=== PATIENT | male | born 2000 | race Caucasian/White ===

== ENCOUNTER 2024-02-11 13:13 | Emergency (ER) | payer OTHER, SELFPAY ==
--- NOTE | ~2024-02-11 | XR_ITS ---
EXAMINATION: XR chest 2V DATE: 02/11/2024 13:56 INDICATION: Chest pain. TECHNIQUE: Frontal and lateral views of the chest were obtained. COMPARISON: None. FINDINGS: There is no pneumonia, pleural effusion, or pneumothorax. The heart size is normal. IMPRESSION: 1. No acute cardiopulmonary disease. Reviewed, dictated and finalized at location A.
--- NOTE | 2024-02-11 13:14 | ECG_ITS ---
Test Date: 2024-02-11 13:18:48 Measurements Intervals [place] Rate: 71 P: 74 PA: 160 QRS: 61 QRSD: 102 T: 32 QT: 405 QTc: 442 Interpretive Statements SINUS RHYTHM WITH SINUS ARRHYTHMIA No previous ECG available for comparison Electronically Signed On 02-11-2024 14:51:58 CDT by Chastity Baugh M.D.
[2024-02-11 13:16] VITALS: BP 147/86; PULSE 68; RESP 18; TEMP 36.7; O2SAT 99
[2024-02-11 13:36] LABS: Basophils Percent Auto 0.3 % (0.2-1.2); Eosinophils Absolute Auto 0.1 K/mm3 (0-0.3); Eosinophils Percent Auto 1.5 % (0-4.4); Hematocrit 48.8 % (42.0-52.0); Hemoglobin 17.1 g/dL (14.0-18.0); Immature Granulocyte Absolute 0.01 K/mm3 (0.00-0.031); Immature Granulocyte Percent A 0.2 % (0-0.5); Lymphocytes Absolute Auto 2.09 K/mm3 (0.9-3.2); Lymphocytes Percent Auto 35.9 % (18.3-44.2); Mean Corpuscular Hemoglobin 31.5 pg (26-34); Mean Corpuscular Volume 89.9 fl (80-100); Mean Platelet Volume 10.5 fl (7.4-10.4); Monocytes Absolute Auto 0.5 K/mm3 (0.1-0.6); Monocytes Percent Auto 8.1 % (2.6-8.5); Neutrophils Absolute Auto 3.1 K/mm3 (1.3-6.7); Platelet Count Result 211 k/mm3 (150-375); Red Blood Count 5.43 M/mm3 (4.6-6.20); Red Cell Distribution Width 12.4 % (11.5-14.5); White Blood Count 5.8 K/mm3 (4.5-10.0)
[2024-02-11 13:45] LABS: Alanine Aminotransferase 17 U/L (6-50); Albumin Level 5.2 g/dL (3.5-5.1); Alkaline Phosphatase 69 U/L (38-126); Anion Gap 13 mmol/L (4-12); Aspartate Amino Transferase 27 U/L (17-59); Blood Urea Nitrogen 16 mg/dL (9-20); Calcium 9.3 mg/dL (8.4-10.2); Carbon Dioxide 28 mmol/L (22-30); Chloride 100 mmol/L (98-107); Estimated CRCL calculation 127 ml/min; Estimated Glomerular Filt Rate > 60; Glucose 89 mg/dL (65-110); Lipase 30 U/L (23-300); Sodium 141 mmol/L (137-145)
[2024-02-11 13:50] LABS: Prothrombin Time 13.8 Seconds (11.1-14.7)
[2024-02-11 13:51] LABS: Partial Thromboplastin Time 27.8 Seconds (22.3-36.8)
[2024-02-11 13:56] LABS: Troponin I < 0.012 ng/mL (0.000-0.034)
[2024-02-11 14:05] VITALS: BP 128/93; PULSE 63; PULSE 72; RESP 17; O2SAT 98; O2SAT 99
[2024-02-11] MEDS: ASPIRIN 81 MG CHEWABLE TABLET 324 MG PO (14:10)
--- NOTE | 2024-02-11 14:37 | ED.CHESTPAIN ---
HPI - Chest Pain General Chief Complaint: Chest Pain Stated Complaint: chest pain Time Seen by Provider: 02/11/24 14:06 History of Present Illness HPI narrative: 23-year-old male present to the emergency department for evaluation for chest heaviness and increased generalized weakness. Patient states he has had the symptoms for the last few days but felt like he was having increased weakness. 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 Patient denies any significant past medical history, is not taking medications and has no significant past medical history. Related Data Home Medications Medication Instructions Recorded Confirmed No Home Medications 02/11/24 02/11/24 Allergies Allergy/AdvReac Type Severity Reaction Status Date / Time No Known Allergies Allergy Unverified 02/11/24 14:07 Review of Systems Review of Systems: All systems reviewed & are unremarkable except as noted in HPI and below Exam Narrative: APPEARANCE: Well appearing, no pain, no distress, well-nourished. HEAD: normocephalic, atraumatic. EYES: PERRLA/EOMI, conjunctivae clear. NOSE: Normal no drainage EARS:TMS clear with good light reflex. THROAT: Pharynx clear, no exudate. NECK: Supple. No adenopathy, no masses. RESPIRATORY: Airway patent, respirations nonlabored. Clear to auscultation bilaterally, no rales, rhonchi, wheezing. CARDIOVASCULAR: Regular rate and rhythm without murmurs rubs or gallops. ABDOMINAL: Soft, nontender, nondistended, normal bowel sounds MUSCULOSKELETAL: Moves all extremities. Strength/ROM intact, No edema, No calf tenderness. NEURO: Alert. Cranial nerves II through XII intact. Grossly intact SKIN: Warm, dry. Normal Color Course Course Emergency Course: A patient did feel improved and patient had no questions at time of discharge. Patient was encouraged to have close follow-up with his primary care physician. Vital Signs Vital signs: Vital Signs Temperature 98.0 F 02/11/24 13:16 Pulse Rate 68 02/11/24 13:16 Respiratory Rate 18 02/11/24 13:16 Blood Pressure 147/86 H 02/11/24 13:16 Pulse Oximetry 99 02/11/24 13:16 Oxygen Delivery Room Air 02/11/24 13:16 Temperature 98.0 F 02/11/24 13:16 Pulse Rate 87 02/11/24 16:50 Respiratory Rate 16 02/11/24 16:50 Blood Pressure 115/62 02/11/24 16:50 Pulse Oximetry 98 02/11/24 16:50 Oxygen Delivery Room Air 02/11/24 14:05 MDM - Chest Pain MDM Narrative Medical decision making narrative: 23-year-old male presented to ED for evaluation for increased chest pressure and increased generalized weakness. Patient was afebrile with no leukocytosis and a stable hemoglobin of 17.1. Patient has no significant electrolyte abnormalities. Patient had negative serial troponin. TSH was negative, UA was negative, patient was negative and flu RSV and COVID. Differential Diagnosis Differential diagnosis: Likely atypical chest pain, chest pain (COVID flu RSV, pneumonia, UTI, viral center) and biliary colic Lab Data Attestation: I reviewed the patient's lab results. 02/11/24 13:24 02/11/24 13:24 Labs: Lab Results 02/11/24 02/11/24 02/11/24 Range/Units 13:24 14:16 15:01 WBC 5.8 (4.5-10.0) K/mm3 RBC 5.43 (4.6-6.20) M/mm3 Hgb 17.1 (14.0-18.0) g/dL Hct 48.8 (42.0-52.0) % MCV 89.9 (80-100) fl MCH 31.5 (26-34) pg MCHC 35.0 (32-36) g/dl RDW 12.4 (11.5-14.5) % Plt Count 211 (150-375) k/mm3 MPV 10.5 H (7.4-10.4) fl Immature Gran % (Auto) 0.2 (0-0.5) % Neut % (Auto) 54.0 (45.5-73.1) % Lymph % (Auto) 35.9 (18.3-44.2) % [place] % (Auto) 8.1 (2.6-8.5) % Eos % (Auto) 1.5 (0-4.4) % Baso % (Auto) 0.3 (0.2-1.2) % Lymph # (Auto) 2.09 (0.9-3.2) K/mm3 [place] # (Auto) 0.5 (0.1-0.6) K/mm3 Eos # (Auto) 0.1 (0-0
[2024-02-11 14:51] VITALS: BP 127/90; PULSE 73; RESP 16; O2SAT 99
[2024-02-11 15:05] LABS: Influenza A QL RT-PCR Negative (Negative); Influenza B QL RT-PCR Negative (Negative); RSV RNA, RT-PCR Negative (Negative); SARS-CoV-2 RNA PCR Negative (Negative)
[2024-02-11 15:08] LABS: Magnesium 2.1 mg/dL (1.6-2.3)
[2024-02-11 15:12] LABS: Add Urine Microscopic? NO; Appearance Urine Clear (Clear); Bilirubin Urine Negative (Negative); Blood Urine Negative (Negative); Color Urine Yellow (Yellow); Glucose Urine UA Negative (Negative); Ketones Urine Negative (Negative); Leukocyte Esterase Ur Negative LEU/UL (Negative); Nitrate Urine Negative (Negative); Protein Urine Negative (Negative); Specific Grav Ur 1.026 (1.001-1.035); pH Urine 6.5 (5.0-9.0)
[2024-02-11 16:11] VITALS: BP 115/62; PULSE 64; RESP 19; O2SAT 99
--- NOTE | 2024-02-11 16:11 | ECG_ITS ---
Test Date: 2024-02-11 16:14:28 Measurements Intervals [place] Rate: 63 P: 65 [place]: 165 QRS: 39 QRSD: 96 T: 32 QT: 412 QTc: 423 Interpretive Statements SINUS RHYTHM Compared to ECG 02/11/2024 13:18:48 Sinus arrhythmia no longer present Electronically Signed On 02-12-2024 17:03:04 CDT by Chastity Baugh M.D.
[2024-02-11 16:43] LABS: Troponin I < 0.012 ng/mL (0.000-0.034)
[2024-02-11 16:50] VITALS: BP 115/62; PULSE 87; RESP 16; O2SAT 98
== END 2024-02-11 17:01 | disposition home or self-care (01) ==
PROVIDERS: Emergency Provider Emergency Medicine
DX: R07.9 Chest pain, unspecified (principal); R53.1 Weakness; Z20.822 Contact with and (suspected) exposure to COVID-19
CPT/HCPCS: 36415; 71046; 80053; 81003; 83690; 83735; 84443; 84484; 85025; 85610; 85730; 87637; 93005; 99284; A9270